=== PATIENT | male | born 2000 | race Two or more races ===

== ENCOUNTER 2023-03-06 00:49 | Emergency (ER) | payer OTHER ==
[~2023-03-06] VITALS: Ht 170.2 cm; Wt 70.3 kg
[2023-03-06] MEDS ORDERED: ZEPOSIA0.92 MG PO (01:03)
[2023-03-06] MEDS ORDERED: DOLOGESIC 500-1 EACH PO (03:55)
== END 2023-03-06 04:05 ==
LOC: ER 00:49
DX: R42 Dizziness and giddiness (principal); M54.2 Cervicalgia; J34.2 Deviated nasal septum; G35 Multiple sclerosis